=== PATIENT | female | born 1995 | race Caucasian/White ===

== ENCOUNTER 2020-09-25 11:56 | Day surgery (SDC) | payer OTHER ==
[~2020-09-25 11:56] MED LIST: DEXAMETHASONE SOD PHOSPHATE 4 MG/ML 1 ML VIAL IV ONE; HYDROmorphone 0.5 MG/0.5 ML SYRINGE IVP PRN; LACTATED RINGERS 1,000 ML IV SCH; MIDAZOLAM 2 MG/2 ML VIAL IV PRN; ONDANSETRON 4 MG/2 ML VIAL IVP ONE; Pre Op ABX Message 1 EACH MISC MISCELLANE ONE; SCOPOLAMINE 1.5MG/72HR PATCH TRANSDERM ONE
[2020-09-25 12:27] VITALS: TEMP 96.9
[2020-09-25] MEDS ORDERED: LIDOCAINE 1% (10MG/ML) FOR IV START INTRADERMA ONE (12:33)
--- NOTE | 2020-09-25 14:21 | P.OP ---
Date of Procedure: 09/25/20 Procedure(s) Performed: left 4th finger mucous cyst excision with DIP joint spur removal PREOPERATIVE DIAGNOSES: 1. Right ring finger dorsal mass consistent with dorsal ganglion/mucous cyst POSTOPERATIVE DIAGNOSES: 1 . Right ring finger dorsal mass consistent with dorsal ganglion/mucous cyst PROCEDURES PERFORMED: 1. Right ring finger dorsal mass excision with partial nail plate excision and DIP joint spur removal ANESTHESIA: Local plus IV sedation SILK SPREADER: None COMPLICATIONS: None ESTIMATED BLOOD LOSS: Less than 10 cc TOURNIQUET: 15 minutes DISPOSITION: To post-anesthesia care unit INDICATIONS: Christine is a 24 year old female with a history of painful dorsal 4th finger mass. The mass has the characteristics of a dorsal mucous cyst with disturbance of the growth of the nail, pain, and stiffness of the DIP joint. There is also concern that it may be a glomus tumor, although cold sensitivity is not present. She desires surgical removal. The risks and potential complications of surgery have been discussed at length. The consent form has been signed. PROCEDURE: The patient was taken to the operating room after appropriate consent was obtained. IV sedation was initiated and the right upper extremity was prepared and draped in the usual aseptic fashion with Hibiclens prep. Time-out was called, confirming patient identity, side, and procedure. Digital block was administered using 2% lidocaine without epinephrine. A total of approximately 6 cc was used. Exsanguination of the finger with an Esmarch bandage was accomplished and the tourniquet was inflated to 250 mm Hg. The skin was then incised with a scalpel just through the dermis, in line with the paronychium and nail deformity. The mass was located just below the subcutaneous tissue and was easily excised. Fibrotic material was present without much of a fluid-filled mass but no hypervascularity was noted. The mass was sent in formalin to pathology for microscopic analysis. A longitudinal incision was created into the joint to evaluate for any spurs and a small amount of bone was removed from this side of the DIP joint to make sure that the cyst would not recur. In addition, it was noted that the side of the nail was curled under the paroychium on the side of the mass and the nail itself was quite irregular, so a portion of the nail was sharply removed from that side, from the germinal matrix to the end, removing a 3mm strip of nail plate including the curled section. The extensor tendon was carefully avoided throughout the case. Thorough irrigation was then performed. Closure was performed with 4-0 nylon sutures in horizontal mattress technique. An additional suture was placed in simple fashion between the nail plate and the paronychium. Sterile dressing and light compressive dressing along mayra taping with web roll around the middle and ring fingers applied and the patient was taken to recovery room in stable condition. Sponge and needle count were correct.
[2020-09-25] MEDS ORDERED: MIDAZOLAM 2 MG/2 ML VIAL ONE (14:40)
[2020-09-25] MEDS ORDERED: fentaNYL (PF) 50 MCG/ML 2 ML AMP ONE (14:40)
[2020-09-25] MEDS ORDERED: ceFAZolin 1,000 MG VIAL IVPB ONE (14:40)
[2020-09-25] MEDS ORDERED: PROPOFOL 10 MG/ML 20 ML VIAL IV ONE (14:40)
[2020-09-25] MEDS ORDERED: LIDOCAINE 2% (PF) 20 MG/ML 10 ML AMP SQ ONE (14:40)
[2020-09-25 15:30] VITALS: BP 122/78; PULSE 67; RESP 18
--- NOTE | 2020-09-29 10:27 | CDI ---
Date: 09.29.20 CDS/Supply Chain Specialist Name: Linda Tyler Phone: If any questions, call Yanet Melara Gaming Dealer at [phone] Patient Name: Christine Esquivel Admit Date 09.25.20 Discharge Date: 09.25.20 ATTENTION: The [facility] Coding Staff appreciate your assistance in clarifying documentation. Please respond to the clarification below the line at the bottom and electronically sign. The [facility] Coding staff will review the response and follow-up if needed. Please note: Queries are made part of the Legal Health Record. If you have any questions, please contact the Gaming Dealer. Dear Dr. Brown In order to code to the greatest specificity and for the greatest reimbursement I need the following information: You removed a bone spur from the DIP joint, please specify whether this was 1. subcutaneous or subfascial and 2. less then 1.5 cm or greater than 1.5 cm Thank you for your kind consideration. subfascial less than 1.5 cm. MTDD
== END 2020-09-25 15:46 | disposition home or self-care (01) ==
LOC: OR 11:56
PROVIDERS: ATTEND Orthopaedic Surgery
DX: M72.8 Other fibroblastic disorders (principal); M77.8 Other enthesopathies, not elsewhere classified; Z86.69 Personal history of other diseases of the nervous system and sense organs; Z98.890 Other specified postprocedural states; Z87.891 Personal history of nicotine dependence; Z88.1 Allergy status to other antibiotic agents; Z83.3 Family history of diabetes mellitus
CPT/HCPCS: 11750 ×2; 81025; 88305; 26116; J2250; J1100; J2001; J2405; J0690; J3010; J2704; 88304